=== PATIENT | male | born 1955 | race Caucasian/White ===

== ENCOUNTER 2018-01-21 10:30 | Emergency (ER) | payer OTHER ==
[~2018-01-21] VITALS: Ht 172.7 cm; Wt 83.7 kg
[2018-01-21 10:34] VITALS: BP 131/77
[2018-01-21] MEDS ORDERED: DEXAMETHASONE 10 MG/ML VIAL IM ONE (11:20)
[2018-01-21] MEDS ORDERED: KETOROLAC 60 MG/2 ML VIAL IM ONE (11:20)
[2018-01-21 12:39] VITALS: BP 118/78
== END 2018-01-21 12:39 | disposition home or self-care (01) ==
LOC: MED 10:30
DX: G89.29 Other chronic pain (principal); M54.5 Low back pain; M25.551 Pain in right hip; M25.552 Pain in left hip; J45.909 Unspecified asthma, uncomplicated; E11.9 Type 2 diabetes mellitus without complications; K21.9 Gastro-esophageal reflux disease without esophagitis; I10 Essential (primary) hypertension; F17.200 Nicotine dependence, unspecified, uncomplicated
CPT/HCPCS: 96372; 99283; J1100; J1885

== ENCOUNTER 2018-02-08 10:18 | Emergency (ER) | payer OTHER ==
[~2018-02-08] VITALS: Ht 177.8 cm; Wt 83.9 kg
[2018-02-08 10:24] VITALS: BP 85/71
[2018-02-08] MEDS ORDERED: NACL 0.9% 1,000 ML IV ONE (10:40)
[2018-02-08] MEDS ORDERED: KETOROLAC 30 MG/ML VIAL IVP ONE (10:40)
--- NOTE | 2018-02-08 10:43 | NUR ---
PATIENT PRESENTS TO ED WITH THE CHIEF C/O COLD SYMPTOMS STARTED SINCE YESTERDAY.PT DENIES N. STATED HE VOMITED X4. DENIES DIARRHEA. SKIN IS PINK/WARM/DRY; AAOX4 WITH EVEN AND STEADY GAIT; LUNGS CLEAR BL; HR EVEN AND REGULAR. C/O INTERMITTENT CHILLS/FEVERISH. DRY COUGH. HAS NOT EATEN FOR 2 DAYS. C/O SOB AT THIS TIME. O2 SAT 97% IN ROOM AIR. PATIENT STATES GENERALIZED BODY PAIN OF 9/10 AT THIS TIME; PT HAS FEVER 101.5 DEGREE F AT THIS TIME. PATIENT POSITIONED FOR COMFORT; HOB ELEVATED; BEDRAILS UP X2; BED DOWN. ER MD MADE AWARE OF PT STATUS.
--- NOTE | 2018-02-08 11:14 | NUR ---
PT BEING SEEN BY DR. GIPSON AT THIS TIME.
--- NOTE | 2018-02-08 12:03 | NUR ---
Patient discharged with v/s stable. Written and verbal after care instructions given and explained. Patient alert, oriented and verbalized understanding of instructions. Ambulatory with steady gait. All questions addressed prior to discharge. ID band removed. Patient advised to follow up with PMD. Rx of TAMIFLU, ZOFRAN given. Patient educated on indication of medication including possible reaction and side effects. Opportunity to ask questions provided and answered.
[2018-02-08 12:04] VITALS: BP 119/64
== END 2018-02-08 12:03 | disposition home or self-care (01) ==
LOC: MED 10:18
DX: J11.1 Influenza due to unidentified influenza virus with other respiratory manifestations (principal); J45.909 Unspecified asthma, uncomplicated; E11.9 Type 2 diabetes mellitus without complications; I10 Essential (primary) hypertension; M79.7 Fibromyalgia; F17.200 Nicotine dependence, unspecified, uncomplicated
CPT/HCPCS: 96361; 96374; 99283; J1885

== ENCOUNTER 2018-02-15 08:09 | Inpatient (IN) | payer OTHER ==
[~2018-02-15] VITALS: Ht 177.8 cm; Wt 76.7 kg
[2018-02-15 08:12] VITALS: BP 116/71
--- NOTE | 2018-02-15 08:20 | NUR ---
PT AMBULATES TO BED 8
--- NOTE | 2018-02-15 08:22 | NUR ---
bib nephew with c/o cough for over a week, adominal pain with watery stools x today +nausea, generalized weakness ---seen in our er JAN 21, FEB 08 for flu like symptoms hx--dm, htn, gerd, hyperlipidemia rx---amlodipine, omeprazole, ibuprofen, gabapentin, methocarbamol, hctz, banophen, januvia, alendronate, atorvastatin, depakote, norco
--- NOTE | 2018-02-15 08:34 | NUR ---
Patient being evaluated by physician at bedside.
[2018-02-15] MEDS ORDERED: NACL 0.9% 2,000 ML IV SCH (08:36)
[2018-02-15] MEDS ORDERED: PIPERACILLIN/TAZOBACTAM 3.375 GM in DEXT 5% MINI-BAG PLUS 50 ML IV ONE (08:40)
[2018-02-15] MEDS ORDERED: KETOROLAC 30 MG/ML VIAL IM ONE (08:40)
[2018-02-15] MEDS ORDERED: PIPERACILLIN/TAZOBACTAM 3.375 GM VIAL IV ONE (08:52)
[2018-02-15 09:08] LABS: HEMOGLOBIN 13.5 g/dL (12.0-18.0); MEAN CORPUSCULAR HEMOGLOBIN 29 pg (27-31); MEAN CORPUSCULAR HGB CONC 34 g/dL (33-37); MEAN CORPUSCULAR VOLUME 85.3 fL (80-94); PLATELET COUNT (AUTO) 371 K/uL (140-450); RED BLOOD CELL COUNT(AUTO) 4.69 MIL/uL (4.20-6.10); RED CELL DISTRIBUTION WIDTH 13.7 % (11.6-13.7)
[2018-02-15 09:32] LABS: LYMPHOCYTES % (MANUAL) 11 % (20-46); METAMYELOCYTES % 4 % (0-0); MONOCYTES % (MANUAL) 10 % (5-12)
--- NOTE | 2018-02-15 09:36 | NUR ---
XRAY AT BEDSIDE
[2018-02-15 09:58] LABS: PROTHROMBIN TIME 9.6 secs (10.8-13.4)
[2018-02-15 10:15] LABS: SODIUM SERUM 133 mmol/L (136-145)
[2018-02-15 10:18] LABS: ANION GAP 13.1 (8-16); CARBON DIOXIDE 27.7 mmol/L (21-32); CHLORIDE 95 mmol/L (98-107); GLUCOSE 140 mg/dL (74-106); POTASSIUM 2.8 mmol/L (3.5-5.1)
[2018-02-15 10:19] LABS: ASPARTATE AMINOTRANSFERASE 112 U/L (15-37); CREATININE 1.6 mg/dL (0.7-1.3); GFR ARICAN-AMERICAN 57 mL/min (>90); TOTAL BILIRUBIN 0.9 mg/dL (0.0-1.0); UREA NITROGEN, BLOOD 43 mg/dL (7-18)
[2018-02-15 10:20] LABS: ALBUMIN 2.3 g/dL (3.4-5.0); MAGNESIUM 1.7 mg/dL (1.8-2.4)
[2018-02-15 10:21] LABS: ACETONE, SERUM SMALL (NEGATIVE)
[2018-02-15] MEDS ORDERED: POTASSIUM CHLORIDE 10 MEQ TABER PO ONE (10:45)
[2018-02-15] MEDS ORDERED: ALBUTEROL SULFATE/IPRATROPIU 3 ML SOL INH PRN (10:45)
[2018-02-15] MEDS ORDERED: ACETAMINOPHEN 325 MG TAB PO PRN (10:45)
[2018-02-15] MEDS ORDERED: LORazepam 1 MG TAB PO PRN (10:45)
--- NOTE | 2018-02-15 11:01 | NUR ---
US AT BEDSIDE
--- NOTE | 2018-02-15 11:02 | NUR ---
pt refuse urinary catheter at this time, encourage to provide urine sample
--- NOTE | 2018-02-15 11:03 | NUR ---
us at bedside
[2018-02-15] MEDS ORDERED: IBUP-2213 PO (11:09)
[2018-02-15] MEDS ORDERED: DIPH50CA69 PO (11:09)
[2018-02-15] MEDS ORDERED: OMEP20TC12 PO (11:09)
[2018-02-15] MEDS ORDERED: METH500T14 PO (11:09)
[2018-02-15] MEDS ORDERED: ALEN70TA52 PO (11:09)
[2018-02-15] MEDS ORDERED: HYDR-5092 PO (11:09)
[2018-02-15] MEDS ORDERED: GABA400C PO (11:09)
[2018-02-15] MEDS ORDERED: DIVA500T1 PO (11:09)
[2018-02-15] MEDS ORDERED: AMLO5TAB PO (11:09)
[2018-02-15] MEDS ORDERED: ATOR20TA PO (11:09)
[2018-02-15] MEDS ORDERED: ORE25 PO (11:09)
[2018-02-15] MEDS ORDERED: SITA100T8 PO (11:09)
--- NOTE | 2018-02-15 11:16 | NUR ---
PT TAKEN TO TELE FLOOR BY LIBBY WATTS AND ANNETTE PERKINS
--- NOTE | 2018-02-15 11:20 | NUR ---
Patient will be admitted to care of Dr Good. Admited to tele room 112A. Belongings list completed. Report to LIBBY Luo. Addendum: 02/15/18 at 1125 by MARIS pt able to provide urine, sample collected by LIBBY Luo
[2018-02-15] MEDS ORDERED: CLINICAL MONITORING MC PRN (11:25)
[2018-02-15 11:30] VITALS: BP 113/71
--- NOTE | 2018-02-15 11:30 | NUR ---
PATIENT ARRIVED FROM ER VIA GURNEY, ABLE TO WALK FROM ER GURNEY TO [facility] BED WITH ASSISTANCE. NO DISTRESS NOTED. VITAL SIGNS STABLE. AAOX4, CALM, COOPERATIVE, SKIN COLOR APPROPRIATE TO ETHNICITY, WARM TO TOUCH. SKIN INTACT. IV SITE INTACT, PATENT, AND WILL START IVF PER MD ORDERS. LUNGS CTA ON ALL LOBES. RESPIRATIONS EVEN, UNLABORED, ON ROOM AIR. ABDOMEN SOFT, NON-DISTENDED. ORIENTED PATIENT TO ROOM AND CALL LIGHT. REVIEWED PLAN OF CARE WITH PATIENT. PATIENT VERBALIZED UNDERSTANDING. SAFETY MEASURES IN PLACE, CALL LIGHT WITHIN REACH. WILL CONTINUE TO MONITOR.
[2018-02-15] MEDS: HYDROcodone/APAP 5/325 MG 1 TAB TAB PO PRN ×2 (12:26→17:52)
[2018-02-15] MEDS: LEVOFLOXACIN 750 MG/D5W PREMIX 150 ML IV SCH (12:27)
[2018-02-15] MEDS: LACTATED RINGERS 1,000 ML IV SCH ×2 (12:28→23:15)
--- NOTE | 2018-02-15 12:49 | NUR ---
PATIENT LYING DOWN IN BED COMFORTABLY. NO DISTRESS NOTED. COMPLAINS OF HIP PAIN, NORCO GIVEN ORDERED. SCHEDULED MEDICATIONS DUE GIVEN. WILL CONTINUE TO MONITOR.
[2018-02-15 13:17] LABS: BARBITURATE, URINE NEG. ng/ml (NEG <=200); BENZODIAZEPINE, URINE NEG. ng/mL (NEG <=200); BILIRUBIN,URINE NEGATIVE (NEGATIVE); CANNABINOID, URINE NEG. ng/mL (NEG <=50); COCAINE, URINE NEG. ng/mL (NEG <=300); COLOR,URINE YELLOW (YELLOW); LEUKOCYTE ESTERASE ,URINE 1+ (NEGATIVE); NITRITE, URINE POSITIVE (NEGATIVE); OPIATE, URINE NEG. ng/mL (NEG <=2000); PHENCYCLIDINE SCREEN,URINE NEG. ng/mL (NEG <=25); UGLUCOSE NEGATIVE (NEGATIVE)
[2018-02-15 13:18] LABS: APPEARANCE,URINE HAZY (CLEAR)
[2018-02-15 13:23] LABS: RBC,URINE 0-5 (RARE) /HPF (0-5)
[2018-02-15 13:24] LABS: BLOOD, URINE 1+ (NEGATIVE)
[2018-02-15] MEDS ORDERED: INSULIN LISPRO SLIDING SCALE 100 UNITS/ML VIAL SUBQ PRN (13:25)
[2018-02-15] MEDS ORDERED: DEXTROSE 50% 50 ML SYR IVP PRN (13:25)
[2018-02-15] MEDS ORDERED: GABAPENTIN 100 MG CAP PO SCH (14:30)
--- NOTE | 2018-02-15 14:36 | NUR ---
PATIENT LYING DOWN IN BED SLEEPING, AROUSABLE BY VOICE. NO DISTRESS NOTED. SCHEDULED MEDICATIONS DUE GIVEN. WILL CONTINUE TO MONITOR.
[2018-02-15] MEDS ORDERED: COMMUNICATION ORDER MC ONE (15:00)
[2018-02-15] MEDS ORDERED: MAGNESIUM SULFATE 1GM in DEXTROSE 5% 100 ML PREMIX IV SCH (15:00)
[2018-02-15 16:00] VITALS: BP 108/69
[2018-02-15] MEDS: BLOOD GLUCOSE MONITORING 1 DEV DEV FS SCH ×2 (17:00→21:25)
--- NOTE | 2018-02-15 17:54 | NUR ---
PATIENT COMPLAINS OF PAIN, NORCO GIVEN PER ORDERS. WILL CONTINUE TO MONITOR.
--- NOTE | 2018-02-15 19:25 | NUR ---
GAVE REPORT TO FITNESS WORKER NURSE FOR CONTINUITY OF CARE. WILL CONTINUE TO MONITOR.
--- NOTE | 2018-02-15 19:26 | NUR ---
RECEIVE DPT IN STABLE CONDITION FROM AM NURSE. AWAKE,ALERT AND ORIENTED X4. ON TELE MONITOR. -SR. WITH NO C/O ANY PAIN AT THIS TIME. HAS IVF INFUSING WELL ON THE RT FA#[id number], CLEAR AND PATENT. PLAN OF CARE DISCUSSED AND VERBALIZED UNDERSTANDING. BED ON LOW POSITION , FREQUENT ROUNDS NEEDED. CALL LIGHT AND URINAL PLACED WITHIN EASY REACH. WILL CONTINUE TO MONITOR.
[2018-02-15 19:33] LABS: ANION GAP 11.8 (8-16); CARBON DIOXIDE 26.2 mmol/L (21-32); CREATININE 1.5 mg/dL (0.7-1.3)
[2018-02-15 20:00] VITALS: BP 122/71
--- NOTE | 2018-02-15 20:30 | NUR ---
ASSISTED UP TO BATHROOM. HE SAID HE MIGHT HAVE A BM BUT UNABLE. BACK TO BED . NO C/O ANY PAIN NOTED.
[2018-02-15] MEDS: GABAPENTIN 100 MG CAP PO SCH (21:05)
--- NOTE | 2018-02-15 21:33 | NUR ---
BLOOD SUGAR WAS CHECKED AND RESULT 172. INSULIN COVERAGE GIVEN SUBQ. HAD SOME CRACKERS. WILL CONTINUE TO MONITOR.
--- NOTE | 2018-02-15 21:40 | NUR ---
K LEVEL STILL LOW 3.[address] DAVIES, DR. RUTH COMPUTER SYSTEMS AUDITOR. CALLED BACK MADE AWARE WITH ORDERS.
[2018-02-15] MEDS ORDERED: POTASSIUM CHLORIDE 10 MEQ TABER PO SCH ×2 (21:50→21:54)
--- NOTE | 2018-02-15 22:30 | NUR ---
DR. DAVIES CAME AND SEEN AND TALKED TO PT.
[2018-02-16 00:10] VITALS: BP 118/70
[2018-02-16] MEDS: HYDROcodone/APAP 5/325 MG 1 TAB TAB PO PRN ×3 (00:39→16:48)
[2018-02-16] MEDS: ZOLPIDEM 5 MG TAB PO PRN ×2 (01:53→20:14)
--- NOTE | 2018-02-16 01:53 | NUR ---
C/O INSOMNIA. AMBIEN 5 MG PO GIVEN ORDERED. WILL CONTINUE TO MONITOR.
[2018-02-16] MEDS ORDERED: POTASSIUM CHLORIDE 10 MEQ TABER PO SCH (02:00)
--- NOTE | 2018-02-16 03:10 | NUR ---
MADE ROUNDS. PT IS ASLEEP. NO S/S OF ANY DISCOMFORT NOTED.
[2018-02-16] MEDS: LACTATED RINGERS 1,000 ML IV SCH ×3 (04:19→23:28)
[2018-02-16 04:28] VITALS: BP 106/57
--- NOTE | 2018-02-16 05:06 | NUR ---
PT HAS BEEN TO THE BATHROOM X2 WITH LIQUID STOOL. WILL CONTINUE TO MONITOR.
--- NOTE | 2018-02-16 05:15 | NUR ---
CALLED RADIOLOGY. FOLLOW UP ABOUT US ABDOMEN COMPLETE. TO BE DONE BET [phone] THIS AM. KEEP PT NPO. LAST ATE @5460. PT MADE AWARE.
[2018-02-16] MEDS: BLOOD GLUCOSE MONITORING 1 DEV DEV FS SCH ×4 (05:41→20:13)
--- NOTE | 2018-02-16 06:12 | NUR ---
BLOOD SUGAR THIS AM RESULT 133. NO INSULIN NEEDED.
--- NOTE | 2018-02-16 07:15 | NUR ---
ENDORSED PT IN STABLE CONDITION TO KRYSTAL WALLIS.
--- NOTE | 2018-02-16 07:16 | NUR ---
RECEIVED REPORT FROM ARCHIVAL STUDIES PROFESSOR NURSE. PATIENT LYING DOWN IN BED. NO DISTRESS NOTED. PAIN WITHIN TOLERABLE AT THIS TIME. AAOX3, CALM, COOPERATIVE. REPORTS FATIGUE DUE TO NOT BEING ABLE TO SLEEP WELL LAST NIGHT. SKIN IS INTACT. IV SITE INTACT, PATENT, AND INFUSING IVF PER MD ORDERS. LUNGS CTA ON ALL LOBES. REVIEWED PLAN OF CARE WITH PATIENT. PATIENT VERBALIZED UNDERSTANDING. SAFETY MEASURES IN PLACE, CALL LIGHT WITHIN REACH. WILL CONTINUE TO MONITOR.
[2018-02-16 07:35] LABS: BASOPHILS # (AUTO) 0.1 K/uL (0.00-0.22); BASOPHILS % (AUTO) 0.3 % (0.0-2.0); EOSINOPHILS # (AUTO) 0.1 K/uL (0-0.4); EOSINOPHILS % (AUTO) 0.4 % (0.0-4.0); HEMATOCRIT 39.4 % (36-52); LYMPHOCYTES # (AUTO) 1.1 K/uL (2.0-11.5); LYMPHOCYTES % (AUTO) 5.8 % (20.5-51.1); MEAN CORPUSCULAR HEMOGLOBIN 29 pg (27-31); MEAN CORPUSCULAR HGB CONC 33 g/dL (33-37); MEAN CORPUSCULAR VOLUME 88.2 fL (80-94); MONOCYTES # (AUTO) 1.7 K/uL (0.8-1.0); MONOCYTES % (AUTO) 9.4 % (1.7-9.3); NEUTROPHILS # (AUTO) 15.7 K/uL (1.8-7.7); NEUTROPHILS % (AUTO) 84.1 % (42.2-75.2); PLATELET COUNT (AUTO) 343 K/uL (140-450); RED BLOOD CELL COUNT(AUTO) 4.47 MIL/uL (4.20-6.10); RED CELL DISTRIBUTION WIDTH 13.5 % (11.6-13.7); WHITE BLOOD COUNT (AUTO) 18.7 K/uL (4.8-10.8)
[2018-02-16 08:00] VITALS: BP 120/58
[2018-02-16 08:25] LABS: ALBUMIN 2.1 g/dL (3.4-5.0); ANION GAP 9.5 (8-16); CARBON DIOXIDE 29.7 mmol/L (21-32); CREATININE 1.4 mg/dL (0.7-1.3); POTASSIUM 4.2 mmol/L (3.5-5.1); TOTAL BILIRUBIN 0.7 mg/dL (0.0-1.0)
[2018-02-16] MEDS: DOCUSATE SODIUM 100 MG GELCAP PO SCH (09:05)
[2018-02-16] MEDS: amLODIPine 5 MG TAB PO SCH (09:05)
[2018-02-16] MEDS: GABAPENTIN 100 MG CAP PO SCH ×2 (09:06→20:15)
[2018-02-16] MEDS: DIVALPROEX 500 MG TABER PO SCH (09:06)
[2018-02-16] MEDS: ATORVASTATIN 20 MG TAB PO SCH (09:06)
--- NOTE | 2018-02-16 09:11 | NUR ---
PATIENT LYING DOWN IN BED. NO DISTRESS NOTED. PAIN WITHIN TOLERABLE. SCHEDULED MEDICATIONS DUE GIVEN. SPUTUM SAMPLE COLLECTED. WILL CONTINUE TO MONITOR.
[2018-02-16] MEDS: NICOTINE TRANSD SYS 21 MG/24 HR PATCH TD SCH (10:24)
--- NOTE | 2018-02-16 10:28 | NUR ---
PATIENT COMPLAINS OF GENERALIZED PAIN, NORCO GIVEN. WILL CONTINUE TO MONITOR.
[2018-02-16 12:00] VITALS: BP 116/71
[2018-02-16] MEDS: LEVOFLOXACIN 750 MG/D5W PREMIX 150 ML IV SCH (12:26)
--- NOTE | 2018-02-16 14:34 | NUR ---
PATIENT LYING DOWN IN BED ON HIS CELLPHONE. NO DISTRESS NOTED. SCHEDULED MEDICATIONS DUE GIVEN. WILL CONTINUE TO MONITOR.
[2018-02-16] MEDS: ONDANSETRON 4 MG/2 ML VIAL IVP PRN (14:50)
--- NOTE | 2018-02-16 14:57 | NUR ---
PATIENT HAD SMALL VOMIT EPISODE <10 ML OUT, ZOFRAN GIVEN. WILL CONTINUE TO MONITOR.
[2018-02-16 16:00] VITALS: BP 130/75
--- NOTE | 2018-02-16 17:25 | NUR ---
DR. RICARDO AT BEDSIDE REVIEWING PLAN OF CARE WITH PATIENT. WILL CONTINUE TO MONITOR.
--- NOTE | 2018-02-16 19:33 | NUR ---
GAVE REPORT TO STERILE PROCESSING TECH NURSE FOR CONTINUITY OF CARE. PATIENT IN STABLE CONDITION.
--- NOTE | 2018-02-16 19:34 | NUR ---
RECEIVED REPORT FROM DAY SHIFT. PT IS A&OX3. RESPIRATIONS ARE EQUAL AND UNLABORED. DENIES ANY PAIN. LUNG SOUNDS ARE CLEAR. PT COMPLAIN HES IRRITABLE BECAUSE HE HASN'T SLEPT FOR A DAY. AND IS REQUESTING MEDICATION TO HELP HIM FALL ASLEEP. WILL ADMINISTER AMBIEN WITH MEDICATIONS. SKIN INTACT. PT ON FALL PROTOCOL FOR GENERALIZED WEAKNESS. IV ON R FA 22G INFUSING PER ORDERS. PLAN OF CARE REVIEWED. CALL LIGHT WITHIN REACH.
[2018-02-16 20:00] VITALS: BP 102/62
--- NOTE | 2018-02-16 20:14 | NUR ---
VITAL SIGNS ARE WITHIN NORMAL LIMITS. DUE MEDICATIONS GIVEN AND AMBIEN ADMINISTERED PER ORDERS. WILL CONTINUE TO MONITOR.
--- NOTE | 2018-02-16 23:00 | NUR ---
PT IS SLEEPING COMFORTABLY IN BED. NO SIGNS OF DISTRESS. RESPIRATIONS ARE EQUAL AND UNLABORED. CALL LIGHT IS WITHIN REACH. WILL CONTINUE TO MONITOR.
[2018-02-17 00:10] VITALS: BP 126/79
[2018-02-17] MEDS: HYDROcodone/APAP 5/325 MG 1 TAB TAB PO PRN ×4 (00:14→13:03)
--- NOTE | 2018-02-17 00:14 | NUR ---
NORCO GIVEN PER ORDERS FOR PAIN. PT TOLERATED WELL. VITAL SIGNS ARE WITHIN NORMAL LIMITS. ALL NEEDS MET AT THIS TIME. CALL LIGHT WITHIN REACH.
[2018-02-17] MEDS: ONDANSETRON 4 MG/2 ML VIAL IVP PRN ×2 (01:29→12:08)
--- NOTE | 2018-02-17 01:29 | NUR ---
ZOFRAN GIVEN FOR NAUSEA. PT TOLERATED WELL. NO S/SX OF DISTRESS. WILL CONTINUE TO MONITOR.
--- NOTE | 2018-02-17 02:30 | NUR ---
PT SLEEPING COMFORTABLY. RESPIRATIONS ARE EQUAL AND UNLABORED. CALL LIGHT WITHIN REACH.
[2018-02-17 04:00] VITALS: BP 130/77
--- NOTE | 2018-02-17 04:34 | NUR ---
VITAL SIGNS ARE WITHIN NORMAL LIMITS. NORCO ADMINISTERED FOR PAIN. PT STATES HE FEELS SOB. LUNG SOUNDS ARE CLEAR O2 SAT 96% ON RA. RT NOTIFIED.
--- NOTE | 2018-02-17 04:45 | NUR ---
RT IS AT BEDSIDE. PT IN NO DISTRESS. WILL CONTINUE TO MONITOR.
--- NOTE | 2018-02-17 07:20 | NUR ---
ENDORSED PT TO DAY SHIFT. PT IN STABLE CONDITION.
--- NOTE | 2018-02-17 07:21 | NUR ---
RECEIVED REPORT FROM CARBIDE TOOL MAKER NURSE. PATIENT LYING DOWN IN BED. NO DISTRESS NOTED. DENIES ANY PAIN AT THIS TIME. REPORTS FEELING BETTER COMPARED TO YESTERDAY AFTER GETTING SLEEP LAST NIGHT. SKIN IS INTACT. IV SITE INTACT, PATENT, AND INFUSING IVF PER MD ORDERS. LUNGS CTA ON ALL LOBES. REVIEWED PLAN OF CARE WITH PATIENT. PATIENT VERBALIZED UNDERSTANDING. SAFETY MEASURES IN PLACE, CALL LIGHT WITHIN REACH. WILL CONTINUE TO MONITOR.
[2018-02-17 08:00] VITALS: BP 127/71
[2018-02-17 08:02] LABS: HEMOGLOBIN 12.5 g/dL (12.0-18.0); MEAN CORPUSCULAR HEMOGLOBIN 29 pg (27-31); MEAN CORPUSCULAR HGB CONC 33 g/dL (33-37); MEAN CORPUSCULAR VOLUME 88.4 fL (80-94); PLATELET COUNT (AUTO) 364 K/uL (140-450); RED CELL DISTRIBUTION WIDTH 13.6 % (11.6-13.7); WHITE BLOOD COUNT (AUTO) 17.6 K/uL (4.8-10.8)
[2018-02-17] MEDS: BLOOD GLUCOSE MONITORING 1 DEV DEV FS SCH ×2 (08:06→12:02)
[2018-02-17 08:33] LABS: ALBUMIN 2.1 g/dL (3.4-5.0); ANION GAP 13.2 (8-16); CREATININE 1.3 mg/dL (0.7-1.3); POTASSIUM 3.2 mmol/L (3.5-5.1); TOTAL BILIRUBIN 0.5 mg/dL (0.0-1.0)
[2018-02-17 08:34] LABS: LYMPHOCYTES % (MANUAL) 6 % (20-46); MONOCYTES % (MANUAL) 7 % (5-12)
[2018-02-17] MEDS: DOCUSATE SODIUM 100 MG GELCAP PO SCH (08:47)
[2018-02-17] MEDS: GABAPENTIN 100 MG CAP PO SCH (08:47)
[2018-02-17] MEDS: DIVALPROEX 500 MG TABER PO SCH (08:47)
[2018-02-17] MEDS: ATORVASTATIN 20 MG TAB PO SCH (08:47)
--- NOTE | 2018-02-17 08:47 | NUR ---
PATIENT HAS BEEN SCREENED AND CATEGORIZED HIGH NUTRITION RISK. PATIENT WILL BE SEEN WITHIN 1-2 DAYS OF ADMISSION. 02/17/[address]
[2018-02-17] MEDS: amLODIPine 5 MG TAB PO SCH (08:48)
[2018-02-17] MEDS: NICOTINE TRANSD SYS 21 MG/24 HR PATCH TD SCH (09:02)
--- NOTE | 2018-02-17 09:02 | NUR ---
PATIENT LYING DOWN IN BED, COMPLAINS OF GENERALIZED PAIN, NORCO GIVEN. OTHER SCHEDULED MEDICATIONS DUE GIVEN. OLD NICOTINE PATCH ON RIGHT UPPER ARM REMOVED. NEW NICOTINE PATCH APPLIED ON LEFT ARM. PHYSICAL THERAPISTS AT BEDSIDE ABOUT TO PERFORM EVALUATION WITH PATIENT. WILL CONTINUE TO MONITOR.
[2018-02-17] MEDS ORDERED: KCL 20 MEQ/WATER INJ PREMIX 100 ML IV SCH (11:00)
--- NOTE | 2018-02-17 11:30 | NUR ---
STARTED POTASSIUM VIA IV PER MD ORDERS, PATIENT UNABLE TO TOLERATE. WILL NOTIFY MD. WILL CONTINUE TO MONITOR.
[2018-02-17 12:00] VITALS: BP 119/53
[2018-02-17] MEDS ORDERED: POTASSIUM CHLORIDE 10 MEQ TABER PO SCH (12:00)
[2018-02-17] MEDS: LACTATED RINGERS 1,000 ML IV SCH (12:08)
[2018-02-17] MEDS: LEVOFLOXACIN 750 MG/D5W PREMIX 150 ML IV SCH (12:08)
--- NOTE | 2018-02-17 12:18 | NUR ---
PATIENT LYING DOWN IN BED FEELING NAUSEATED, NO VOMITING. ZOFRAN GIVEN. OTHER SCHEDULED MEDICATIONS DUE GIVEN. WILL CONTINUE TO MONITOR.
--- NOTE | 2018-02-17 14:10 | NUR ---
[facility] SCHEDULED MEDICATIONS DUE GIVEN. WILL CONTINUE TO MONITOR.
--- NOTE | 2018-02-17 14:22 | NUR ---
02/17/18 RD INITIAL ASSESSMENT COMPLETED PLEASE REFER TO NUTRITION ASSESSMENT UNDER CARE ACTIVITY FOR ESTIMATED NUTRITIONAL NEEDS. 1. CONTINUE RENAL AND CCHO 60 GM DIET TOLERATED 2. ENCOURAGE INCREASING PO INTAKE TOLERATED 3. RD TO PROVIDE NUTRITION EDUCATION ON FOLLOW UP VISIT 4. RD TO FOLLOW-UP 3-5 DAYS, MODERATE RISK CHIDI BASILIO RD
[2018-02-17] MEDS ORDERED: GABA400C PO (14:54)
--- NOTE | 2018-02-17 15:00 | NUR ---
DISCHARGE INSTRUCTIONS PROVIDED TO PATIENT/FRIEND AT BEDSIDE IN PREFERRED LANGUAGE OF KITTITIAN. FOLLOW-UP VISIT WITH PCP, BRIM GREASER OPERATOR, DIET REGIMEN, NEW/CHANGED MEDICATION REGIMEN, AND PNEUMONIA DISEASE MANAGEMENT/PREVENTION MEASURES EDUCATION PROVIDED. ANSWERED ALL OF PATIENT/FRIEND QUESTIONS REGARDING DISCHARGE.PATIENT/FRIEND VERBALIZED COMPLETE UNDERSTANDING. IV SITE REMOVED WITH MINIMAL BLOOD AND LUMEN COMPLETELY INTACT, ID BANDS REMOVED. PATIENT TO GET DRESSED AND THEN FRIEND WILL DRIVE HIM HOME. WILL CONTINUE TO MONITOR.
--- NOTE | 2018-02-17 15:25 | NUR ---
PATIENT ALL DRESSED UP AND ESCORTED PATIENT DOWN TO LOBBY VIA AMBULATION. PATIENT DISCHARGED TO HOME AT THIS TIME IN PRIVATE VEHICLE IN STABLE CONDITION.
--- NOTE | 2018-02-19 10:47 | NUR ---
HAD ORDER FOR FOLLOW UP WITH [facility]INIC. FAXED ORDER AND FACE SHEET TO ANGEL AT [facility] [phone].
--- NOTE | 2018-02-19 10:59 | NUR ---
Called Dr. Stacey Carroll appoinment made for 02/21/18 at 1500. Called patient at home and left a message to call us back.
--- NOTE | 2018-02-19 11:24 | NUR ---
CALLED MAI AT [facility]. [phone]. SHE SAID TO FAX THE ORDER, FACE SHEET, H&P,CHEST XRAY, LABS AND DISCHARGE SUMMARY TO [phone]. THE PATIENT WILL HAVE AN APPOINTMENT WITH DR. LEHMAN AT [address] [place] [address] ON SATURDAY AT 12:45P.M. MR. MIJARES CALLED AND I GAVE HIM THE INFORMATION ABOUT THE DATE AND TIME OF THE APPOINTMENT. ALSO GAVE HIM THE PHONE NUMBER, [phone].
--- NOTE | 2018-02-19 11:40 | NUR ---
Called Dr. Carroll's clinic and cancelled the appointment for 02/21/18.
== END 2018-02-17 15:25 | disposition home or self-care (01) | DRG 469 ==
LOC: MED 08:09 → MTU 10:50
PROVIDERS: ADMIT Hospitalist; ATTEND Hospitalist
DX: N17.9 Acute kidney failure, unspecified (principal); E11.22 Type 2 diabetes mellitus with diabetic chronic kidney disease; E11.42 Type 2 diabetes mellitus with diabetic polyneuropathy; R65.10 Systemic inflammatory response syndrome (SIRS) of non-infectious origin without acute organ dysfunction; E83.42 Hypomagnesemia; E86.0 Dehydration; J44.1 Chronic obstructive pulmonary disease with (acute) exacerbation; E87.6 Hypokalemia; N39.0 Urinary tract infection, site not specified; N18.9 Chronic kidney disease, unspecified; J45.909 Unspecified asthma, uncomplicated; Z82.49 Family history of ischemic heart disease and other diseases of the circulatory system; Z83.3 Family history of diabetes mellitus; M79.7 Fibromyalgia; Z86.19 Personal history of other infectious and parasitic diseases; I12.9 Hypertensive chronic kidney disease with stage 1 through stage 4 chronic kidney disease, or unspecified chronic kidney disease; Z79.899 Other long term (current) drug therapy; G89.29 Other chronic pain; E78.5 Hyperlipidemia, unspecified; K21.9 Gastro-esophageal reflux disease without esophagitis; T39.395A Adverse effect of other nonsteroidal anti-inflammatory drugs [NSAID], initial encounter; Y92.89 Other specified places as the place of occurrence of the external cause
CPT/HCPCS: 36415; 36600; 71045; 74018; 76700; 76770; 80048; 80053; 80305; 81001; 82009; 82550; 82553; 82803; 82948; 83036; 83605; 83735; 83874; 84484; 84550; 85025; 85610; 85730; 86140; 87040; 87070; 87081; 87086; 87186; 87205; 87804; 93005; 94640; 96361; 96365; 96372; 97116; 99291; G0482; J0696; J1644; J1815; J1885; J1956; J2405; J2543; J3480; J7030; J7060; J7120; J7620; Q0092

== ENCOUNTER 2018-03-05 10:21 | Emergency (ER) | payer OTHER ==
[~2018-03-05] VITALS: Ht 177.8 cm; Wt 80.3 kg
[~2018-03-05 10:21] MED LIST: AMLO5TAB PO; DIVA500T1 PO; GABA400C PO; OMEP20TC12 PO; ORE25 PO; SITA100T8 PO
[2018-03-05 10:26] VITALS: BP 118/75
[2018-03-05 11:08] VITALS: BP 118/75
== END 2018-03-05 11:08 | disposition home or self-care (01) ==
LOC: MED 10:21
DX: R73.9 Hyperglycemia, unspecified (principal); I10 Essential (primary) hypertension; Z79.84 Long term (current) use of oral hypoglycemic drugs; Z79.899 Other long term (current) drug therapy; Z76.0 Encounter for issue of repeat prescription
CPT/HCPCS: 82948; 99283

== ENCOUNTER 2018-04-12 14:49 | Emergency (ER) | payer OTHER ==
[~2018-04-12] VITALS: Ht 177.8 cm; Wt 83.5 kg
[2018-04-12 15:04] VITALS: BP 140/98
--- NOTE | 2018-04-12 15:32 | NUR ---
C/O LOWER BACK PAIN EXACERBATION X YESTERDAY DENIES RECENT INJURY---PT STATES HE WALKS 1 MILE A DAY AMBULATORY WITH SLOW STEADY GAIT VSS; PATIENT POSITIONED FOR COMFORT; HOB ELEVATED; BEDRAILS UP X1; BED DOWN. ER MD MADE AWARE OF PT STATUS.
--- NOTE | 2018-04-12 15:32 | NUR ---
PT AMBULATED TO BED 11.
[2018-04-12] MEDS ORDERED: DEXAMETHASONE 10 MG/ML VIAL IM ONE (16:15)
[2018-04-12] MEDS ORDERED: KETOROLAC 60 MG/2 ML VIAL IM ONE (16:15)
--- NOTE | 2018-04-12 16:52 | NUR ---
Patient discharged with v/s stable. Written and verbal after care instructions given and explained. Patient verbalized understanding. Ambulatory with steady gait. All questions addressed prior to discharge. Advised to follow up with PMD.
[2018-04-12 16:57] VITALS: BP 140/98
== END 2018-04-12 16:52 | disposition home or self-care (01) ==
LOC: MED 14:49
DX: M54.40 Lumbago with sciatica, unspecified side (principal); E11.9 Type 2 diabetes mellitus without complications; I10 Essential (primary) hypertension; Z79.899 Other long term (current) drug therapy
CPT/HCPCS: 96372; 99283; J1100; J1885

== ENCOUNTER 2018-04-14 09:44 | Emergency (ER) | payer OTHER ==
[~2018-04-14] VITALS: Ht 177.8 cm; Wt 81.6 kg
[2018-04-14 10:13] VITALS: BP 112/72
--- NOTE | 2018-04-14 10:25 | NUR ---
Fatmata tineo in [facility] - 04/14/18 at 1027 by [email or web address] HAND ON URINE CUP TO PT.
--- NOTE | 2018-04-14 11:04 | NUR ---
patient ambulated to ER bed 9
--- NOTE | 2018-04-14 11:10 | NUR ---
C/O MID LOWER BACK PAIN RADIATING TO LITA HIPS X 5DAYS. SEEN HERE 2 DAYS AGO SAME S/S. GOT TORADOL & STEROID SHOT. DENIES TRAUMA , DYSUREA OR N/V/D. LAST BM NORMAL TODAY. HX; HTN,DM,NEUROPHATHY, HIGH CHOLESTEROL MED: ON THE LIST
[2018-04-14] MEDS ORDERED: LORazepam 2 MG/ML VIAL IM ONE (12:45)
[2018-04-14] MEDS ORDERED: KETOROLAC 60 MG/2 ML VIAL IM ONE (12:45)
--- NOTE | 2018-04-14 13:20 | NUR ---
PATIENT AMB TO RESTROOM WITH STEADY GAIT.
[2018-04-14 14:27] VITALS: BP 112/72
== END 2018-04-14 14:28 | disposition home or self-care (01) ==
LOC: MED 09:44
DX: G89.29 Other chronic pain (principal); M54.5 Low back pain; I10 Essential (primary) hypertension; R73.03 Prediabetes
CPT/HCPCS: 96372; 99283; J1885; J2060

== ENCOUNTER 2018-05-20 15:04 | Emergency (ER) | payer OTHER ==
[~2018-05-20] VITALS: Ht 177.8 cm; Wt 83.9 kg
[2018-05-20 15:08] VITALS: BP 111/91
--- NOTE | 2018-05-20 15:08 | NUR ---
Note undone in [facility] - 05/20/18 at 1802 by [email or web address] TRIAGE, EKG: NSR, WAIT IN LOBBY FOR BED AVAILABLE. Addendum: 05/20/18 at 1551 by [email or web address] Amendment undone in [facility] - 05/20/18 at 1802 by [email or web address] VSS
--- NOTE | 2018-05-20 15:08 | NUR ---
TRIAGE, EKG: SINUS TACHY 102/MINS, WAIT IN LOBBY FOR BED AVAILABLE.
--- NOTE | 2018-05-20 17:12 | NUR ---
CALLED PT FOR BED ASSIGNMENT, NO RESONSE AT THIS TIME. WILL ATTEMPT AGAIN LATER
== END 2018-05-20 17:12 | disposition left against medical advice (07) ==
LOC: MED 15:04
DX: R07.9 Chest pain, unspecified (principal); Z53.21 Procedure and treatment not carried out due to patient leaving prior to being seen by health care provider
CPT/HCPCS: 93005; 99281

== ENCOUNTER 2018-05-21 08:55 | Inpatient (IN) | payer OTHER ==
[~2018-05-21] VITALS: Ht 177.8 cm; Wt 83.9 kg
[2018-05-21 08:59] VITALS: BP 138/106
--- NOTE | 2018-05-21 09:07 | NUR ---
Patient ambulated to bed 3. RN evaluating patient at bedside.
--- NOTE | 2018-05-21 09:13 | NUR ---
Dr. Stevens evaluating patient at bedside.
--- NOTE | 2018-05-21 09:18 | NUR ---
PT BIB SELF FOR ABD AND NAUSEA/VOMITING X 3DAYS. PT REPROTS YELLOW EMESIS 2X IN PAST 24 HOURS, AND IS UNABLE TO EAT, DRINK, OR TAKE MEDICATIONS DUE TO NAUSEA. PT DENIES DIARRHEA OR FEVER. ABD IS SOFT, FLAT, NON-TENDER, AND BOWEL SOUNDS ACTIVE X4 QUADRANTS. PT REPORTS SHARP 8/10 PAIN IN EPIGASTRIC REGION THAT RADIATES TO ENTIRE ABD. VSS. ER MD TO SEE PT. MEDHX:GERD, DM, HTN, KIDNEY DISEASE, FIBROMYALGA RX: ATROVASTATIN, GABAPENTIN, METFORMIN, NORCO, METHOCARBAMOL, ALENDRONATE, HYDROCHOLROTHIAZIDE
[2018-05-21] MEDS ORDERED: ONDANSETRON 4 MG/2 ML VIAL IVP ONE ×2 (09:20→10:40)
[2018-05-21 09:32] LABS: BASOPHILS # (AUTO) 0.2 K/uL (0.00-0.22); BASOPHILS % (AUTO) 0.9 % (0.0-2.0); HEMATOCRIT 47.1 % (36-52); HEMOGLOBIN 15.7 g/dL (12.0-18.0); LYMPHOCYTES # (AUTO) 0.9 K/uL (2.0-11.5); LYMPHOCYTES % (AUTO) 4.6 % (20.5-51.1); MEAN CORPUSCULAR HEMOGLOBIN 29 pg (27-31); MEAN CORPUSCULAR HGB CONC 33 g/dL (33-37); MEAN CORPUSCULAR VOLUME 87.5 fL (80-94); MONOCYTES # (AUTO) 1.5 K/uL (0.8-1.0); MONOCYTES % (AUTO) 7.6 % (1.7-9.3); NEUTROPHILS # (AUTO) 16.6 K/uL (1.8-7.7); NEUTROPHILS % (AUTO) 86.9 % (42.2-75.2); PLATELET COUNT (AUTO) 487 K/uL (140-450); RED BLOOD CELL COUNT(AUTO) 5.39 MIL/uL (4.20-6.10); RED CELL DISTRIBUTION WIDTH 15.2 % (11.6-13.7); WHITE BLOOD COUNT (AUTO) 19.1 K/uL (4.8-10.8)
[2018-05-21] MEDS: NACL 0.9% 1,000 ML IV SCH ×2 (09:32→12:14)
--- NOTE | 2018-05-21 09:45 | NUR ---
PT SIGNED CONSENT FOR CT WITH CONTRAST
[2018-05-21 09:53] LABS: ALBUMIN 3.8 g/dL (3.4-5.0); ANION GAP 20.6 (8-16); CARBON DIOXIDE 22.2 mmol/L (21-32); CREATININE 1.8 mg/dL (0.7-1.3); POTASSIUM 3.8 mmol/L (3.5-5.1)
--- NOTE | 2018-05-21 10:06 | NUR ---
PT GOING TO CT AT THIS TIME, ZAYDA SOUZA ACCOMPANIED PT.
--- NOTE | 2018-05-21 10:16 | NUR ---
PT RETURNED FROM CT AT THIS TIME
--- NOTE | 2018-05-21 10:20 | NUR ---
PT GUARDING ABD, REPORTS SHARP PAIN AT 7/10, PT DENIES NAUSEA AT THIS TIME. PT UNABLE TO PROVIDE URINE AT THIS TIME. ER MADE AWARE.
[2018-05-21] MEDS ORDERED: NACL 0.9% 1,000 ML IV ONE ×2 (10:40→12:00)
[2018-05-21] MEDS ORDERED: MORPHINE SULFATE 4 MG/ML SYR IVP ONE (10:40)
[2018-05-21] MEDS ORDERED: ALUMINUM HYD/MAG/SIMETHICONE 30 ML UDC PO ONE (11:20)
[2018-05-21] MEDS ORDERED: FAMOTIDINE 20 MG/2 ML VIAL IVP ONE (11:20)
--- NOTE | 2018-05-21 11:37 | NUR ---
PT GAVE URINE SAMPLE, J LUIS BRAYNT DIPPED SAMPLE AND GAVE SPECIMEN TO LAB PERSONEL
[2018-05-21 11:41] LABS: BILIRUBIN,URINE NEGATIVE (NEGATIVE); BLOOD, URINE TRACE-L (NEGATIVE); COLOR,URINE YELLOW (YELLOW); LEUKOCYTE ESTERASE ,URINE 2+ (NEGATIVE); NITRITE, URINE POSITIVE (NEGATIVE); PH,URINE 6.5 (5.0-9.0); UGLUCOSE NEGATIVE (NEGATIVE)
[2018-05-21 11:44] LABS: APPEARANCE,URINE SLIGHTLY HAZY (CLEAR)
[2018-05-21 11:52] LABS: RBC,URINE 0-5 /HPF (0-5)
[2018-05-21] MEDS ORDERED: DICYCLOMINE 20 MG/2 ML VIAL IM ONE (12:00)
[2018-05-21] MEDS ORDERED: cefTRIAXone 1,000 MG VIAL ONE (12:29)
[2018-05-21] MEDS ORDERED: ACETAMINOPHEN 325 MG TAB PO PRN (13:05)
--- NOTE | 2018-05-21 13:35 | NUR ---
Patient will be admitted to care of DR DAVIES. Admited to MED/SURG VIA NADIRA CANO VSS. Will go to room 114A. Belongings list completed. Report to JI.
[2018-05-21] MEDS: HYDROcodone/APAP 5/325 MG 1 TAB TAB PO PRN ×3 (14:35→22:45)
--- NOTE | 2018-05-21 15:00 | NUR ---
CHECKED ON THE PT. LYING ON HIS BED. PT ASKING COMPLAIN OF THE PAT AT HIS BACK. ADMINISTERED MES TO THE PT. PT HAS URINAL AT THE BEDSIDE. ADMITTED WITH DX OF UTI AND CC OF ABD PAIN, NAUSEA, VOMITING. PT IS AOX4. AMBULATORY. NO SIGN OF DISTRESS NOTED. ALL SAFETY MEASURE IN PLACE. VS NOTED T 99.0, HR 72, RR 16, BP 110/64, O2 98%C ON RA. CVALL LIGHT WITHIN PT REACH. WILL CONTINUE TO MONITOR PT.
[2018-05-21 16:00] VITALS: BP 109/53
--- NOTE | 2018-05-21 16:06 | NUR ---
COMPLETED THE ADMISSION OF THE PT. PT AWAKE AND ALERT. ABLE TO COMMUNICATE. PT OFFERED JELLO, TOLERATING WELL. NO SIGN OF DISTRESS NOTED. PT COMPLAIN OF PAIN IN EPIGASTRIC REGION BECAUSE OF THE ACID REFLUX. PT IS ON CCHO 60 GM DIET . CALL LIGHT WTIHIN PT REACH. MRSA SWAB COLLECTED . ALL SIGN OF DISTRESS NOTED. WILL CONTINUE TO MONITOR TO MONITOR PT.
[2018-05-21] MEDS ORDERED: GABAPENTIN 100 MG CAP PO SCH (17:00)
--- NOTE | 2018-05-21 17:21 | NUR ---
CALLED DR. DAVIES REGARDING IVF FLUIDS, STATES WILL COME AND SEE THE PT HIMSELF. PT RESTING WELL. NO SIGN OF DISTRESS NOTED. WILL CONTINUE TO MONITOR PT.
--- NOTE | 2018-05-21 18:00 | NUR ---
PT CALLED AND ASKING ABOUT THE ACID REFLUX MEDICATION . PT WAS TRYING TO EAT FOOD, COULD NOT EAT HIS FOOD.CALLED DR DAVIES, WAITING FOR HIS CALL. INFORMED PT THAT MD WILL SEE THE PT HE GETS TO HOSPITAL. OFFERED HIM IF HE WANTS ANY JUICE OR BROTH FROM KITCHEN. DENIES AT THIS TIME. WAITING FOR MD TO SEE THE PT. WILL CONTINUE TO MONITOR PT.
--- NOTE | 2018-05-21 19:20 | NUR ---
ENDORSED PT TO PM NURSE AT BEDSIDE. PT IN STABLE CONDITION.
--- NOTE | 2018-05-21 19:21 | NUR ---
RECEIVED PT FROM AM NURSE RENNY, PT C/O PAIN ON HIS ABDOMEN, " LIKE ACID REFLUX" PER PATIENT. OFFERED MEDS BY MOUTH PT SAID HE DOES NOT WANT TO DRINK NOR EAT. PAT SAID HE CANT TOLERATE THE ORAL MEDS NOW. WILL INFORM DOCTOR AT ONCE.CALL LIGHT WITHIN REACH. BED AT LOWEST POSITION. BED ALARM ON. WILL CONTINUE TO MONITOR
[2018-05-21 20:00] VITALS: BP 109/49
--- NOTE | 2018-05-21 20:00 | NUR ---
CALLED THROUGH TRUNK LINE. LEFT MESSAGE FOR A CALL BACK.
--- NOTE | 2018-05-21 20:30 | NUR ---
AGAIN CALLED DR. FRAGA, AWAITING FOR A CALL BACK
--- NOTE | 2018-05-21 21:00 | NUR ---
DR. BEN DAVIES HIMSELF CALLED HE SAID HE WILL BE HERE SHORTLY TO CHECK ON PATIENT. INFORMED THAT PT NOT ABLE TO TOLERATE PO MEDS, AND THAT HE HAS S/SX'S GERD RIGHT NOW. NO ORDERS FOR PEPCID RIGHT NOW. MYLANTA P.O., PT SAID HE CAN'T TOLERATE P.O MEDS. AWAITING FOR .
[2018-05-21] MEDS: GABAPENTIN 200 MG, GABAPENTIN 600 MG PO SCH ×2 (21:36)
[2018-05-21] MEDS: ONDANSETRON 4 MG/2 ML VIAL IVP PRN (21:40)
--- NOTE | 2018-05-21 22:28 | NUR ---
DR. BEN DAVIES CAME TO VISIT PT. INTERVIEWED PT
[2018-05-21] MEDS: ALUMINUM HYD/MAG/SIMETHICONE 30 ML UDC PO PRN (22:43)
--- NOTE | 2018-05-21 22:48 | NUR ---
WASTED 1/2 NS 1000 ML
[2018-05-21] MEDS: DEXT 5% / NACL 0.45% 1,000 ML IV SCH (22:52)
[2018-05-22] MEDS: HYDROcodone/APAP 5/325 MG 1 TAB TAB PO PRN ×4 (03:44→20:11)
--- NOTE | 2018-05-22 03:44 | NUR ---
PT AGAIN C/O OF EPIGASTIC PAIN, GIVEN MYLANTA AND NORCO.
[2018-05-22] MEDS: ALUMINUM HYD/MAG/SIMETHICONE 30 ML UDC PO PRN ×3 (03:45→17:55)
[2018-05-22 06:45] LABS: ALBUMIN 2.7 g/dL (3.4-5.0); ANION GAP 13.9 (8-16); CARBON DIOXIDE 24.1 mmol/L (21-32); TOTAL BILIRUBIN 0.5 mg/dL (0.0-1.0)
[2018-05-22 06:54] LABS: BASOPHILS # (AUTO) 0.1 K/uL (0.00-0.22); BASOPHILS % (AUTO) 0.7 % (0.0-2.0); EOSINOPHILS # (AUTO) 0.1 K/uL (0-0.4); EOSINOPHILS % (AUTO) 1.3 % (0.0-4.0); HEMATOCRIT 39.6 % (36-52); HEMOGLOBIN 13.1 g/dL (12.0-18.0); LYMPHOCYTES # (AUTO) 1.1 K/uL (2.0-11.5); LYMPHOCYTES % (AUTO) 9.6 % (20.5-51.1); MEAN CORPUSCULAR HEMOGLOBIN 29 pg (27-31); MEAN CORPUSCULAR HGB CONC 33 g/dL (33-37); MEAN CORPUSCULAR VOLUME 87.4 fL (80-94); MONOCYTES # (AUTO) 0.9 K/uL (0.8-1.0); NEUTROPHILS # (AUTO) 9.2 K/uL (1.8-7.7); NEUTROPHILS % (AUTO) 80.4 % (42.2-75.2); PLATELET COUNT (AUTO) 395 K/uL (140-450); RED BLOOD CELL COUNT(AUTO) 4.53 MIL/uL (4.20-6.10); RED CELL DISTRIBUTION WIDTH 15.1 % (11.6-13.7); WHITE BLOOD COUNT (AUTO) 11.5 K/uL (4.8-10.8)
[2018-05-22] MEDS: PANTOPRAZOLE 40 MG TABEC PO SCH (06:56)
--- NOTE | 2018-05-22 07:15 | NUR ---
ENDORSED TO AM SHIFT NURSE SITAL FOR CONTINUITY OF CARE. PT STABLE AT THIS TIME. STILL HAS INTERMITTENT EPIGASTIC PAIN VERBALIZED .
[2018-05-22 08:00] VITALS: BP 109/67
[2018-05-22] MEDS: ONDANSETRON 4 MG/2 ML VIAL IVP PRN (08:25)
[2018-05-22] MEDS: GABAPENTIN 200 MG, GABAPENTIN 600 MG PO SCH ×4 (08:25→21:00)
[2018-05-22] MEDS: DIVALPROEX 500 MG TABER PO SCH (08:25)
[2018-05-22] MEDS: DEXT 5% / NACL 0.45% 1,000 ML IV SCH ×3 (08:30→21:52)
--- NOTE | 2018-05-22 08:55 | NUR ---
PATIENT HAS BEEN SCREENED AND CATEGORIZED HIGH NUTRITION RISK. PATIENT WILL BE SEEN WITHIN 1-2 DAYS OF ADMISSION. 05/22/18-05/23/[address]
[2018-05-22] MEDS ORDERED: NON-FORMULARY ITEM (Omeprazole (Omeprazole) 20 MG) PO SCH (09:00)
--- NOTE | 2018-05-22 09:30 | NUR ---
ADMINISTERED MEDS TO PT ORDERED. ADMINISTERED NORCO FOR HIS PAIN. PT SEEN BY MD AT BEDSIDE. MD ORDERED CLEAR LIQUID DIET IN PT PT COMPLAIN IN DIFFICULTY TOLERATING SOLID FOOD WHILE EATING. PT TO BE CONSULTED BY DR. ABHAY CALLAHAN. NO SIGN OF DISTRESS NOTED AT THIS TIME. WILL CONTINUE TO MONITOR PT.
[2018-05-22] MEDS: LORazepam 2 MG/ML VIAL IVP PRN ×3 (09:57→21:45)
--- NOTE | 2018-05-22 12:17 | NUR ---
CHECKED ON PT. ASKING FOR HIS MYLANTA AND PAIN MEDS. ADMINISTERED MEDS ORDERED. PT HAVING HIS LUNCH. STATES WILL TRY, PT HAS CLEAR LIQUID DIET. INFORMED HIM TO EAT AFTER 10-15 MIN PT HAS HIS MED RT NOW. VERBASLIED UNDERSTANDING. WILL CONTINUE TO MONITOR PT.
--- NOTE | 2018-05-22 14:42 | NUR ---
05/22/18 RD INITIAL ASSESSMENT COMPLETED PLEASE REFER TO NUTRITION ASSESSMENT UNDER CARE ACTIVITY FOR ESTIMATED NUTRITIONAL NEEDS. 1. CONTINUE CLEAR DIET TOLERATED 2. RECOMMEND ENSURE CLEAR TID 3. WHEN PATIENT IS MEDICALLY STABLE CONSIDER ADVANCING DIET TO BRAT CCHO [address] WILL FOLLOW UP WITH EDUCATION ON CKD WITH DIABETES. 5. RD TO FOLLOW-UP 2-3 DAYS, HIGH RISK CHIDI BASILIO RD
--- NOTE | 2018-05-22 15:18 | NUR ---
CHECKED ON PT. LYING ON HIS BED AT THIS TIME. NO SIGN OF DISTRESS. WILL CONTINUE TO MONITOR PT.
[2018-05-22 16:13] VITALS: BP 118/70
[2018-05-22] MEDS: POLYETHYLENE GLYCOL 17 GM/PKT PO SCH (17:05)
[2018-05-22] MEDS: SENNA 8.6 MG TAB PO SCH ×2 (17:05→21:52)
[2018-05-22] MEDS: LACTULOSE 20 GM/30 ML UDC PO SCH ×2 (17:05→21:52)
--- NOTE | 2018-05-22 17:15 | NUR ---
ADMINISTERED MEDS TO PT ORDERED. NO SIGN OF DISTRESS NOTED. CONSENT SIGNED BY THE PT FOR EGD AND COLONOSCOPY. PT STABLE AT THIS TIME. WILL CONTINUE TO MONITOR PT.
[2018-05-22] MEDS: METOCLOPRAMIDE 10 MG/2 ML INJ VIAL IVP SCH ×2 (17:55→23:30)
--- NOTE | 2018-05-22 18:00 | NUR ---
CHECKED ON THE PT. ADMINISTERED PTS MYLANTA AND REGLAN. PT ON NPO STATUS. REFUSED TO PUT HIS IVF BACK. NO SIGN OF DISTRESS NOTED. WILL CONTINUE TO MONITOR PT.
--- NOTE | 2018-05-22 19:10 | NUR ---
ENDORSED PT TO PM NURSE AT BEDSIDE. PT IN STABLE CONDITION. REFUSED IVF.
[2018-05-22] MEDS ORDERED: MAGNESIUM CITRATE 300 ML BTL PO SCH (20:00)
--- NOTE | 2018-05-22 20:13 | NUR ---
PATIENT REFUSING TO TAKE MEDS INCLUDING THE LAXATIVES FOR BOWEL PREP, PT STATED MY STOOL IS LIQUID AND CLEAR, RISK AND BENEFITS EXPLAINED REGARDING THE NEED FOR BOWEL PREP DUE TO COLONOSCOPY PROCEDURE TOMORROW, PT STILL REFUSING, PT WANTS ONLY HIS NORCO PAIN MEDICATION AND ATIVAN FOR ANXIETY, WILL MEDICATE PRN, INSTRUCTED PT TO CALL ME WHEN HE HAS BM SO WE CAN CONFIRM THAT HIS STOOL IS CLEAR FOR COLONOSCOPY, PT VERBALIZED UNDERSTANDING, PT REFUSED ALSO TO BE PUT BACK ON IVF, RISK AND BENEFITS EXPLAINED ESPECIALLY THE NEED DUE TO HIS NPO EXCEPT MEDS STATUS BUT PT STILL REFUSING, STATED JUST LEAVE ME ALONE, CALL LIGHT WITHIN REACH.
--- NOTE | 2018-05-22 21:55 | NUR ---
PT AMBULATED TO BR WITH STEADY GAIT, BM WITH LIQUID STOOL WITH BROWNISH SEDIMENTS EDUCATE PT THE NEED FOR BOWEL PREP SINCE DURING COLONOSCOPY IT WILL NOT BE CLEAR DUE TO A LOT OF SEDIMENTS, PT AGREEABLE, TOLERATED LACTULOSE AND SENOKOT, PT TOOK SOME MAG CITRATE AND IMMEDIATELY COMPLAINED OF EPIGASTRIC AND ABDOMINAL PAIN, PT REFUSED TO TAKE MORE OF THE MAG CITRATE, PT PUT BACK TO IVF OF D5 1/2 NS AT 100ML/H, ALL NEEDS ATTENDED.
--- NOTE | 2018-05-22 22:40 | NUR ---
PT AMBULATED TO BR, BM WITH LIQUID CLEAR YELLOW STOOL WITH SMALL AMOUNT OF LIGHT BROWN SEDIMENTS NOTED, NO N/V NOTED AND DENIES PAIN AT THIS TIME, IVF INFUSING WELL, MONITORED CLOSELY.
[2018-05-22 23:30] VITALS: BP 114/63
--- NOTE | 2018-05-22 23:30 | NUR ---
PT SLEEPING, AROUSABLE TO NAME, VITAL SIGNS STABLE, DENIES PAIN AT THIS TIME, IVF INFUSING WELL, MAINTAINED ON NPO EXCEPT MEDS, CONTINUE TO MONITOR CLOSELY.
--- NOTE | 2018-05-23 01:40 | NUR ---
PT FREQUENTLY AMBULATES TO BR, STATED HAVING SMALL AMOUNT OF LIQUID STOOL, PT ASKING WHEN CAN HE GET HIS PAIN MED, MADE AWARE OF NEXT DUE TIME, VERBALIZED UNDERSTANDING, MONITORED CLOSELY.
[2018-05-23] MEDS: HYDROcodone/APAP 5/325 MG 1 TAB TAB PO PRN ×2 (04:07→12:08)
--- NOTE | 2018-05-23 04:07 | NUR ---
PT COMPLAINING OF PAIN, MEDICATED WITH NORCO PO, MONITORED CLOSELY.
[2018-05-23] MEDS: DEXT 5% / NACL 0.45% 1,000 ML IV SCH ×2 (04:30→14:30)
[2018-05-23] MEDS: ALUMINUM HYD/MAG/SIMETHICONE 30 ML UDC PO PRN (05:48)
[2018-05-23] MEDS: PANTOPRAZOLE 40 MG TABEC PO SCH (05:48)
[2018-05-23] MEDS: METOCLOPRAMIDE 10 MG/2 ML INJ VIAL IVP SCH ×2 (05:49→12:08)
[2018-05-23] MEDS: LORazepam 2 MG/ML VIAL IVP PRN (06:21)
--- NOTE | 2018-05-23 06:40 | NUR ---
PT WANTS TO BE DISCONNECTED ON THE IVF AT THIS TIME, RISK AND BENEFITS EXPLAINED, WILL RESUME LATER, MONITORED CLOSELY.
--- NOTE | 2018-05-23 07:12 | NUR ---
PT AWAKE, NO SIGNS OF DISTRESS, REPORT GIVEN TO RN SITAL FOR CONTINUITY OF CARE.
--- NOTE | 2018-05-23 07:15 | NUR ---
PT AWAKE, NO SIGNS OF DISTRESS, REPORT GIVEN TO LIBBY LAWSON FOR CONTINUITY OF CARE. Addendum: 05/23/18 at 0721 by Pillo Eng RN DISREGARD NOTE, DUPLICATE
--- NOTE | 2018-05-23 07:16 | NUR ---
RECEIVED REPORT FROM PM NURSE AT BEDSIDE. NO CHANGE OF CONDITION. PT IS NPO EXCEPT MEDS SINCE MIDNIGHT FOR EGD AND COLONOSCOPY PROCEDURE TODAY. PER PM NURSE PT HAS CLEAR YELLOW LIQUID STOOL WITH SLIGHT SEDIMENTS. NO SIGN OF DISTRESS. WILL CONTINUE TO MONITOR PT.
[2018-05-23 07:41] LABS: BASOPHILS # (AUTO) 0.1 K/uL (0.00-0.22); BASOPHILS % (AUTO) 0.6 % (0.0-2.0); EOSINOPHILS # (AUTO) 0.2 K/uL (0-0.4); EOSINOPHILS % (AUTO) 1.8 % (0.0-4.0); HEMATOCRIT 36.8 % (36-52); HEMOGLOBIN 12.2 g/dL (12.0-18.0); LYMPHOCYTES # (AUTO) 1.4 K/uL (2.0-11.5); LYMPHOCYTES % (AUTO) 13.9 % (20.5-51.1); MEAN CORPUSCULAR HEMOGLOBIN 29 pg (27-31); MEAN CORPUSCULAR HGB CONC 33 g/dL (33-37); MEAN CORPUSCULAR VOLUME 87.4 fL (80-94); MONOCYTES % (AUTO) 10.1 % (1.7-9.3); NEUTROPHILS # (AUTO) 7.3 K/uL (1.8-7.7); NEUTROPHILS % (AUTO) 73.6 % (42.2-75.2); PLATELET COUNT (AUTO) 418 K/uL (140-450); RED CELL DISTRIBUTION WIDTH 14.9 % (11.6-13.7); WHITE BLOOD COUNT (AUTO) 9.9 K/uL (4.8-10.8)
[2018-05-23 07:56] LABS: ALBUMIN 2.8 g/dL (3.4-5.0); ANION GAP 16.9 (8-16); CARBON DIOXIDE 20.2 mmol/L (21-32); CREATININE 0.9 mg/dL (0.7-1.3); POTASSIUM 4.1 mmol/L (3.5-5.1); TOTAL BILIRUBIN 0.4 mg/dL (0.0-1.0)
[2018-05-23 08:00] VITALS: BP 106/66
[2018-05-23] MEDS: DIVALPROEX 500 MG TABER PO SCH (09:00)
[2018-05-23] MEDS: GABAPENTIN 200 MG, GABAPENTIN 600 MG PO SCH ×2 (09:00)
[2018-05-23] MEDS: SENNA 8.6 MG TAB PO SCH ×2 (09:00→13:00)
[2018-05-23] MEDS: LACTULOSE 20 GM/30 ML UDC PO SCH ×2 (09:00→13:00)
[2018-05-23] MEDS: POLYETHYLENE GLYCOL 17 GM/PKT PO SCH ×2 (09:00→13:00)
--- NOTE | 2018-05-23 09:31 | NUR ---
ADMINISTERED HEPARIN SC AND ABX ORDERED. PT REFUSED ALL HIS PO MEDS , LAXATIVES. INFORMED PT THAT NEED TO TAKE LAXATIVE FOR CLEARING BOWEL. STATES THAT HIS BOWEL IS CLEAR , DO NOT NEED ANY MORE PO MEDS. NO SIGN OF DISTRESS NOTED. WILL CONTINUE TO MONITOR PT.
[2018-05-23] MEDS ORDERED: diphenhydrAMINE 50 MG/ML VIAL ONE (13:33)
[2018-05-23] MEDS ORDERED: MIDAZOLAM 2 MG/2 ML VIAL ONE (13:33)
[2018-05-23] MEDS ORDERED: fentaNYL 0.05 MG/ML VIAL ONE (13:33)
--- NOTE | 2018-05-23 14:24 | NUR ---
OR NURSES AT BEDSIDE TO TAKE PATIENT FOR EGD AND COLONSCOPY.
--- NOTE | 2018-05-23 14:35 | NUR ---
CM NOTE I SPOKE WITH SHALONDA OF [facility] PH# [phone] TO SCHEDULE THE PATIENT'S OUTPATIENT FOLLOW APPOINTMENT ON MAY 28, [address] [place] [address]. THE PATIENT IS CURRENTLY AT THE OR. I GAVE THE COPY OF THE PATIENT'S OUTPATIENT FOLLOW UP SCHEDULE TO DAR SOUZA. NOTIFIED THE NURSE TO GIVE INSTRUCTIONS UPON DISCHARGE.
[2018-05-23] MEDS ORDERED: fentaNYL 0.05 MG/ML VIAL IVP ONE (15:35)
[2018-05-23] MEDS ORDERED: MIDAZOLAM 2 MG/2 ML VIAL IVP ONE (15:35)
[2018-05-23] MEDS ORDERED: diphenhydrAMINE 50 MG/ML VIAL IVP ONE (15:35)
[2018-05-23] MEDS ORDERED: LACT10SO1 PO (17:04)
[2018-05-23] MEDS ORDERED: ELA10 PO (17:04)
[2018-05-23] MEDS ORDERED: CEPH250C16 PO (17:05)
[2018-05-23] MEDS ORDERED: PANT40EC PO (17:05)
--- NOTE | 2018-05-23 17:13 | NUR ---
INFORMED PT THAT HE IS TO BE DISCHARGED HOME. ORDNANCE ARTIFICER CLEARED PT TO BE DC TO HOME. PT STATES HE IS STABLE , CANNOT EAT FOOD YE. WILL NOT GO HOME TILL MORNING. INFORMED HIM THAT HE IS MEDICALLY CLEARED TO BE DISCHARGED. SATES WILL NOT GOP HOME. CHARGE NURSE MADE AWARE. WILL WORK ON PTS DISCHARGE PAPER.
--- NOTE | 2018-05-23 17:42 | NUR ---
PT DISCHARGED TO HOME WITH SELF CARE. ALL HOME MEDS PROVIDED AND OUTPATIENT FOLLOW UP NOTE PROVIDED. PT STABLE AND WENT HOME. WALKED SELF OUT OF FLOOR BY HIMSELF, WITH FRIEND PT STABLE.
[2018-05-23] MEDS ORDERED: SENNA 8.6 MG TAB PO SCH (21:00)
[2018-05-23] MEDS ORDERED: LACTULOSE 20 GM/30 ML UDC PO SCH (21:00)
[2018-05-23] MEDS ORDERED: AMITRIPTYLINE 25 MG TAB PO SCH (21:00)
[2018-05-23] MEDS ORDERED: GABAPENTIN 100 MG CAP PO SCH (21:00)
[2018-05-24] MEDS ORDERED: POLYETHYLENE GLYCOL 17 GM/PKT PO SCH (09:00)
== END 2018-05-23 17:42 | disposition home or self-care (01) | DRG 720 ==
LOC: MED 08:55 → MTU 13:05
PROVIDERS: ADMIT Hospitalist; ATTEND Hospitalist
PROC: 0DB58ZX Excision of Esophagus, Via Natural or Artificial Opening Endoscopic, Diagnostic (ICD-10-PCS; principal; 2018-05-23 16:40)
PROC: 0DJD8ZZ Inspection of Lower Intestinal Tract, Via Natural or Artificial Opening Endoscopic (ICD-10-PCS; 2018-05-23 16:40)
DX: A41.50 Gram-negative sepsis, unspecified (principal); E11.22 Type 2 diabetes mellitus with diabetic chronic kidney disease; E87.2 Acidosis; N17.9 Acute kidney failure, unspecified; E87.1 Hypo-osmolality and hyponatremia; E87.8 Other disorders of electrolyte and fluid balance, not elsewhere classified; N18.3 Chronic kidney disease, stage 3 (moderate); N10 Acute pyelonephritis; I12.9 Hypertensive chronic kidney disease with stage 1 through stage 4 chronic kidney disease, or unspecified chronic kidney disease; G89.29 Other chronic pain; D64.9 Anemia, unspecified; K21.9 Gastro-esophageal reflux disease without esophagitis; K44.9 Diaphragmatic hernia without obstruction or gangrene; K20.9 Esophagitis, unspecified
CPT/HCPCS: 36415; 74220; 80053; 81001; 82948; 83036; 83605; 83690; 85025; 87040; 87081; 87086; 87186; 88305; 88312; 96361; 96365; 96372; 96375; 99285; J0500; J0696; J1200; J1644; J2060; J2250; J2270; J2405; J2765; J3010; J3490; J7030; J7060

== ENCOUNTER 2018-08-05 11:36 | Emergency (ER) | payer OTHER ==
[~2018-08-05] VITALS: Ht 177.8 cm; Wt 104.3 kg
[~2018-08-05 11:36] MED LIST changes: +CEPH250C16 PO; +ELA10 PO; +LACT10SO1 PO; +PANT40EC PO
--- NOTE | 2018-08-05 11:46 | NUR ---
PATIENT AMBULATED TO BED 6
[2018-08-05 11:57] VITALS: BP 113/79
--- NOTE | 2018-08-05 12:00 | NUR ---
C/O LOWER BACK PAIN & R WRIST PAIN 09/03 X2 DAYS. DENIES INJURY. NO OBVIOUS DEFORMITY NOTED. SMALL BUMP TO R LOWER WRIST. PT REPORTS HX OF CHRONIC BACK PAIN. BED IN LOW POSITION, BEDRAILS UP X1
--- NOTE | 2018-08-05 12:40 | NUR ---
DR. BAIRD AT BEDSIDE
[2018-08-05] MEDS ORDERED: MORPHINE SULFATE 4 MG/ML SYR IM ONE (12:45)
[2018-08-05] MEDS ORDERED: ONDANSETRON 4 MG ODT PO ONE (12:45)
--- NOTE | 2018-08-05 13:50 | NUR ---
+CMS to splint
[2018-08-05 13:52] VITALS: BP 113/79
== END 2018-08-05 13:52 | disposition home or self-care (01) ==
LOC: MED 11:36
DX: M67.431 Ganglion, right wrist (principal); M54.5 Low back pain; G89.29 Other chronic pain; E11.9 Type 2 diabetes mellitus without complications; K21.9 Gastro-esophageal reflux disease without esophagitis; I10 Essential (primary) hypertension; N28.9 Disorder of kidney and ureter, unspecified; M81.0 Age-related osteoporosis without current pathological fracture; Z87.891 Personal history of nicotine dependence; Z79.899 Other long term (current) drug therapy
CPT/HCPCS: 29125; 96372; 99283; J2270; Q0162

== ENCOUNTER 2018-08-08 10:15 | Emergency (ER) | payer OTHER ==
[~2018-08-08] VITALS: Ht 177.8 cm; Wt 89.4 kg
[2018-08-08 10:20] VITALS: BP 166/76
--- NOTE | 2018-08-08 10:25 | NUR ---
Note keatonlinda in EDM - 08/08/18 at 1047 by [facility] PT C/O RT ARM PAIN SINCE LAST 4 DAYS. PT HAS BRACE ON HIS RT ARM.WAS HERE FOR THE SAME REASON , WITH CYST ON HIS RT ARM. RAYMOND 9 AT THIS TIME. HAD HIGH BS AT HOME, 138 AT THIS TIME. HAS SOME SLIGHT SCARTCH ON HIS LFT ARM . PT SEEN BY A BEDSIDE. KRISTA LEARY TO MONITOR PT.
--- NOTE | 2018-08-08 10:25 | NUR ---
PT C/O RT ARM PAIN SINCE LAST 4 DAYS. PT HAS BRACE ON HIS RT ARM. PT WAS HERE FOR THE SAME REASON , WITH CYST ON HIS RT ARM. PIAN 9/10 AT THIS TIME. HAD HIGH BS AT HOME THIS AM, 138 BS AT THIS TIME. HAS SOME SLIGHT SCARTCH ON HIS LFT ARM . PT SEEN BY A BEDSIDE. KRISTA LEARY TO MONITOR PT. PT ABLE TO MOVE HIS FINGER AND HAND, FELL THE TOUCH AND HAS CAP REFILL WITHIN NORMAL RANGE.
--- NOTE | 2018-08-08 10:25 | NUR ---
Patient ambulated to bed 8. RN evaluating patient at bedside.
--- NOTE | 2018-08-08 10:29 | NUR ---
Dr. Quijano evaluating patient at bedside.
[2018-08-08] MEDS ORDERED: HYDR-5092 PO (10:31)
[2018-08-08] MEDS ORDERED: ALEN70TA9 PO (10:31)
[2018-08-08] MEDS ORDERED: ATOR20TA PO (10:31)
[2018-08-08] MEDS ORDERED: TERB250T55 PO (10:31)
[2018-08-08] MEDS ORDERED: METF-350 PO (10:31)
[2018-08-08] MEDS ORDERED: DIPH50CA69 PO (10:31)
[2018-08-08] MEDS ORDERED: METH500T14 PO (10:31)
[2018-08-08] MEDS ORDERED: KETOROLAC 60 MG/2 ML VIAL IM ONE (10:45)
[2018-08-08] MEDS ORDERED: hydrOXYzine HCL 25 MG TAB PO ONE (10:45)
[2018-08-08] MEDS ORDERED: MORPHINE SULFATE 4 MG/ML SYR IM ONE (10:45)
--- NOTE | 2018-08-08 11:05 | NUR ---
ADMINISTERED MEDS TO PT ORDERED. PT TOLERATED WELL.
--- NOTE | 2018-08-08 11:15 | NUR ---
Patient discharged with v/s stable. Written and verbal after care instructions given and explained. Patient alert, oriented and verbalized understanding of instructions. Ambulatory with steady gait. All questions addressed prior to discharge. ID band removed. Patient advised to follow up with PMD. Rx of VOLTAREN XR 100 MG given. Patient educated on indication of medication including possible reaction and side effects. Opportunity to ask questions provided and answered.
[2018-08-08 11:22] VITALS: BP 166/76
== END 2018-08-08 11:15 | disposition home or self-care (01) ==
LOC: MED 10:15
DX: G89.29 Other chronic pain (principal); M79.601 Pain in right arm; E11.65 Type 2 diabetes mellitus with hyperglycemia; K21.9 Gastro-esophageal reflux disease without esophagitis; I10 Essential (primary) hypertension; Z87.891 Personal history of nicotine dependence; Z79.84 Long term (current) use of oral hypoglycemic drugs; Z79.899 Other long term (current) drug therapy
CPT/HCPCS: 96372; 99283; J1885; J2270

== ENCOUNTER 2018-08-09 15:30 | Emergency (ER) | payer OTHER ==
[~2018-08-09] VITALS: Ht 177.8 cm; Wt 86.2 kg
[~2018-08-09 15:30] MED LIST changes: +ALEN70TA9 PO; +ATOR20TA PO; +DIPH50CA69 PO; +HYDR-5092 PO; +METF-350 PO; +METH500T14 PO; +TERB250T55 PO
[2018-08-09 15:32] VITALS: BP 95/34
--- NOTE | 2018-08-09 15:45 | NUR ---
PATIENT AMBULATED TO ER BED 3.
--- NOTE | 2018-08-09 15:50 | NUR ---
c/o right arm pain x 10 days. seen here yestertday for eval high blood sugar. his reumatologist appointment for his arm next week. FBS TODAY 134 med hx: dm,cyst right arm,, htn,gerd . DENIES N/V/D; SKIN IS PINK/WARM/DRY; AAOX4 WITH EVEN AND STEADY GAIT; LUNGS CLEAR BL; HR EVEN AND REGULAR; PT DENIES ANY FEVER, CP, SOB, OR COUGH AT THIS TIME; PATIENT STATES PAIN OF 9/10 AT THIS TIME; VSS; PATIENT POSITIONED FOR COMFORT; HOB ELEVATED; BEDRAILS UP X2; BED DOWN. ER MD MADE AWARE OF PT STATUS.
[2018-08-09] MEDS ORDERED: MORPHINE SULFATE 4 MG/ML SYR IM ONE (15:55)
[2018-08-09] MEDS ORDERED: hydrOXYzine HCL 25 MG TAB PO ONE (15:55)
[2018-08-09] MEDS ORDERED: KETOROLAC 60 MG/2 ML VIAL IM ONE (15:55)
[2018-08-09 16:45] VITALS: BP 100/40
== END 2018-08-09 16:40 | disposition home or self-care (01) ==
LOC: MED 15:30
DX: G89.29 Other chronic pain (principal); M79.601 Pain in right arm; E11.9 Type 2 diabetes mellitus without complications; K21.9 Gastro-esophageal reflux disease without esophagitis; I10 Essential (primary) hypertension; F17.200 Nicotine dependence, unspecified, uncomplicated; Z79.84 Long term (current) use of oral hypoglycemic drugs; Z79.899 Other long term (current) drug therapy
CPT/HCPCS: 96372; 99283; J1885; J2270

== ENCOUNTER 2018-08-10 21:40 | Emergency (ER) | payer OTHER ==
[~2018-08-10] VITALS: Ht 177.8 cm; Wt 72.6 kg
[2018-08-10 21:45] VITALS: BP 117/72
--- NOTE | 2018-08-10 21:48 | NUR ---
TO LOBBY A/W BED AMBULATORY
[2018-08-10 22:30] VITALS: BP 117/72
--- NOTE | 2018-08-10 22:30 | NUR ---
PT IS A 63 Y/O MALE WHO PRESENTS TO THE ED C/O R ARM PAIN. PT WAS PREV IN ED YESTERDAY. PT DENIES TX/INJURY. NO OBVIOUS TX/DEFORMITY. PT REPORTS 10/10 ACHING R ARM PAIN THAT DOES NOT RADIATE. PT DENIES CP, SOB, N/V/D. PT AWAKE AND ALERT, RR EVEN/UNLABORED. PT REPOSITIONED FOR COMFORT, PT SITTING IN CHAIR. ER MD DR. KAUR NOTIFIED. WILL CONTINUE TO MONITOR.
--- NOTE | 2018-08-10 22:32 | NUR ---
PATIENT REQUESTING PAIN MEDICATION. ER MD NOTIFIED.
--- NOTE | 2018-08-10 22:35 | NUR ---
Dr. Arrieta examining patient.
--- NOTE | 2018-08-10 22:56 | NUR ---
PT RETURN FROM RAD
--- NOTE | 2018-08-10 23:00 | NUR ---
PATIENT REQUESTING BED. PT ADVISED ON ED PROCEDURES. ER CHARGE UMAIR MADE AWARE.
--- NOTE | 2018-08-10 23:06 | NUR ---
PT STATES, "F YOU GUYS. I'M LEAVING."
--- NOTE | 2018-08-10 23:06 | NUR ---
Patient requesting pain presciption. ER MD notified and patient will not be provided Rx. Pt refused to sign discharge paperwork and remove wristband. Advised to follow up with PMD.
== END 2018-08-10 23:06 | disposition home or self-care (01) ==
LOC: MED 21:40
DX: M25.531 Pain in right wrist (principal); E11.9 Type 2 diabetes mellitus without complications; K21.9 Gastro-esophageal reflux disease without esophagitis; I10 Essential (primary) hypertension; N28.9 Disorder of kidney and ureter, unspecified; F17.200 Nicotine dependence, unspecified, uncomplicated; Z79.84 Long term (current) use of oral hypoglycemic drugs; Z79.899 Other long term (current) drug therapy; Z79.2 Long term (current) use of antibiotics
CPT/HCPCS: 73110; 99283